=== PATIENT | male | born 1955 | race American Indian/Alaskan Native ===

== ENCOUNTER 2018-06-30 18:01 | Emergency (ER) | payer SELFPAY ==
[2018-06-30 18:12] VITALS: RESP 18; TEMP 98.5
--- NOTE | 2018-06-30 18:26 | ED PDOC ---
Arrival/HPI <Ajay Marion - Last Filed: 06/30/18 20:41> - General Historian: Patient - History of Present Illness Narrative History of Present Illness (Text): 06/30/18 18:26 A 62 year old female, whose past medical history includes hypertension and TIA, presents to the emergency department complaining of constipation for 2 days. Patient reports also experiencing mildly intermittent abdominal pain, as well as rectal pain when trying to defecate. States he took a full bottle of Magnesium Citrate and had a bowel movement afterwards, however since then is unable to go to the bathroom. Patient denies any fever, nausea, vomiting, chest pain, shortness of breath, back pain, any urinary symptoms, or any other complaints at this time. PMD: Dr. Phillips <Simin Lewis PA-C - Last Filed: 06/30/18 22:05> - General Chief Complaint: GI Problem Time Seen by Provider: 06/30/18 18:08 Past Medical History - Provider Review Nursing Documentation Reviewed: Yes - Cardiac Hx Hypertension: Yes - Neurological Hx Transient Ischemic Attacks (TIA): Yes - Psychiatric Hx Substance Use: No <Simin Lewis PA-C - Last Filed: 06/30/18 22:05> Family/Social History - Physician Review Nursing Documentation Reviewed: Yes Family/Social History: No Known Family HX Smoking Status: Never Smoked Hx Alcohol Use: No Hx Substance Use: No <Simin Lewis PA-C - Last Filed: 06/30/18 22:05> Allergies/Home Meds <Ajay Marion - Last Filed: 06/30/18 20:41> <Simin Lewis PA-C - Last Filed: 06/30/18 22:05> Allergies/Adverse Reactions: Allergies No Known Allergies Allergy (Verified 06/30/18 18:11) Home Medications: Home Meds Medication Instructions Recorded Confirmed RX: Aspirin [Ecotrin] 81 mg PO DAILY 06/30/18 06/30/18 RX: Atorvastatin [Lipitor] 20 mg PO QPM 06/30/18 06/30/18 RX: hydroCHLOROthiazide 12.5 mg PO DAILY 06/30/18 06/30/18 [Hydrodiuril] Sennosides [Senna] 2 tab PO DAILY PRN 06/30/18 06/30/18 metroNIDAZOLE [Flagyl] 500 mg PO TID 06/30/18 06/30/18 Review of Systems - Physician Review All systems were reviewed & negative as marked: Yes - Review of Systems Constitutional: absent: Fevers Respiratory: absent: SOB Cardiovascular: absent: Chest Pain Gastrointestinal: Constipation. absent: Nausea, Vomiting Musculoskeletal: absent: Back Pain <Simin Lewis PA-C - Last Filed: 06/30/18 22:05> Physical Exam Vital Signs Temp Pulse Resp BP Pulse Ox 06/30/18 18:06 98.5 F 92 H 18 146/74 98 <Ajay Marion - Last Filed: 06/30/18 20:41> Vital Signs Reviewed: Yes Vital Signs Temp Pulse Resp BP Pulse Ox 06/30/18 18:06 98.5 F 92 H 18 146/74 98 Temperature: Afebrile Blood Pressure: Normal Pulse: Regular Respiratory Rate: Normal Appearance: Positive for: Well-Appearing, Non-Toxic, Comfortable Pain Distress: None Mental Status: Positive for: Alert and Oriented X 3 - Systems Exam Head: Present: Atraumatic, Normocephalic Pupils: Present: PERRL Extroacular Muscles: Present: EOMI Conjunctiva: Present: Normal Mouth: Present: Moist Mucous Membranes Neck: Present: Normal Range of Motion Respiratory/Chest: Present: Clear to Auscultation, Good Air Exchange. No: Respiratory Distress, Accessory Muscle Use Cardiovascular: Present: Regular Rate and Rhythm, Normal S1, S2. No: Murmurs Abdomen: Present: Normal Bowel Sounds, Other (no distention). 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 No: Occult Blood (guiaic neg), Rectal Tenderness, Gross Blood, Melena, Hemorrhoids Back: Present: Normal Inspection Upper Extremity: Present: Normal Inspection. No: Cyanosis, Edema Lower Extremity: Present: Normal Inspection. No: Edema Neurological: Present: GCS=15, CN II-XII Intact, Speech Normal Skin: Present: Warm, Dry, Normal Color. No: Rashes Psychiatric: Present: Alert, Oriented x 3, Normal Insight, Normal Concentration <Simin Lewis PA-C - Last Filed: 06/30/18 22:05> Medical Decision Making - RAD Interpretation Radiology Orders: 06/30/18 18:45 obstructive series [ABD 2 VIEWS (FLAT/UP OR DECUB)] [RAD] Stat - Medication Orders Current Medication Orders: Discontinued Medications Lactulose (Enulose) 20 gm PO ONCE STA Stop: 06/30/18 18:46 Last Admin: 06/30/18 19:17 Dose: 20 gm Simethicone (Mylicon Chew Tab) 80 mg PO STAT STA Stop: 06/30/18 20:05 Last Admin: 06/30/18 20:23 Dose: 80 mg Sodium Phosphate (Fleet Enema) 135 ml RC STAT STA Stop: 06/30/18 18:46 Last Admin: 06/30/18 19:17 Dose: 135 ml <Ajay Marion - Last Filed: 06/30/18 20:41> ED Course and Treatment: 06/30/18 18:43 Impression: 62 year old female with constipation, abdominal pain, and rectal pain. Rectal exam shows soft stool, no fecal impaction. Plan: -- lactulose po -- fleet enema pr -- Reassess and disposition Progress Notes: 06/30/18 20:04 After being medicated with lactulose and fleet enema, the patient had a large bowel movement in the ER. Patient states that he has no abdominal pain. On exam, abdomen is mildly distended but soft, +tympanic on percussion, no tenderness, no guarding. Patient given simethacone 80 mg PO. Patient advised to get up and walk around the ER. 06/30/18 21:26 On reevaluation, patient reports improvement of symptoms, denies any abdominal pain, nausea. On exam, patient remains awake alert and oriented 3 in no acute distress. Abdomen soft and nontender, no guarding. Advised to follow up with primary care physician in 1-2 days without fail. Advised to take medication as prescribed. Advised to increase water and fiber intake. Return to the emergency room at any time for any new or worsening symptoms. Patient states he fully agrees with and understands discharge instructions. States that he agrees with the plan and disposition. Verbalized and repeated discharge instructions and plan. I have given the patient opportunity to ask any additional questions. <Simin Lewis PA-C - Last Filed: 06/30/18 22:05> - PA / ASSISTANT DIRECTOR OF FINANCIAL AID / Resident Statement KAMALA has reviewed & agrees with the documentation as recorded. <Ajay Marion - Last Filed: 06/30/18 20:41> - PA / ASSISTANT DIRECTOR OF FINANCIAL AID / Resident Statement KAMALA has reviewed & agrees with the documentation as recorded. - Scribe Statement The provider has reviewed the documentation as recorded by the Mercedes Bah Provider Scribe Attestation: All medical record entries made by the Scribalex were at my direction and personally dictated by me. I have reviewed the chart and agree that the record accurately reflects my personal performance of the history, physical exam, medical decision making, and the department course for this patient. I have also personally directed, reviewed, and agree with the discharge instructions and disposition. <Simin Lewis PA-C - Last Filed: 06/30/18 22:05> Disposition/Present on Arrival <Ajay Marion - Last Filed: 06/30/18 20:41> - Present on Arrival Any Indicators Present on Arrival: No History of DVT/PE: No History of Uncontrolled Diabetes: No Urinary Catheter: No History of Decub. Ulcer: No History Surgical Site Infection Following: None - Disposition Have Diagnosis and Disposition been Completed?: Yes Disposition Time: 21:30 Patient Plan: Discharge <Simin Lewis PA-C - Last Filed: 06/30/18 22:05> - Disposition Diagnosis: Constipation Disposition: HOME/ ROUTINE Condition: STABLE Discharge Instructions (ExitCare): Constipation, Adult (DC) Additional Instructions: Thank you for letting us take care of you today. You were treated for constipation. The emergency medical care you received today was directed at your acute symptoms. If you were prescribed any medication, please fill it and take as directed. It may take several days for your symptoms to resolve. Return to the Emergency Department if your symptoms worsen, do not improve, or if you have any other problems. Please contact your doctor in 2 days for re-evaluation and follow up / or call one of the physicians/clinics you have been referred to that are listed on the Patient Visit Information form that is included in your discharge packet. Bring any paperwork you were given at discharge with you along with any medications you are taking to your follow up visit. Our treatment cannot replace ongoing medical care by a primary care provider (PCP) outside of the emergency department. Thank you for allowing the [facility] team to be part of your care today. If you had an X-Ray : A Radiologist will review the ED reading if any change in treatment is needed we will contact you. Prescriptions: Polyethylene Glycol 3350 [Miralax] 17 pow PO DAILY #20 each Referrals: Jane Dallas MD [Primary Care Provider] - Follow up with primary Scottie Perales MD [Staff Provider] - Follow up with primary Forms: [employer] ([place]), WORK NOTE
[2018-06-30] MEDS ORDERED: Simethicone 80 mg Chewtab PO STA (20:04)
[2018-06-30 21:43] VITALS: BP 134/78; PULSE 86; O2SAT 99
--- NOTE | 2018-07-01 10:33 | RAD ---
Date of service: 06/30/2018 HISTORY: constipation COMPARISON: None available. FINDINGS: BOWEL: Constipation without fecal impaction or obstruction. BONES: Normal. OTHER FINDINGS: None. IMPRESSION: No evidence of mechanical bowel obstruction or free air.
== END 2018-06-30 21:51 | disposition home or self-care (01) ==
LOC: EDSEX 18:01 → ED 18:01
DX: K59.00 Constipation, unspecified (principal); I10 Essential (primary) hypertension; Z86.73 Personal history of transient ischemic attack (TIA), and cerebral infarction without residual deficits